=== PATIENT | male | born 1930 | race Caucasian/White ===

== ENCOUNTER 2016-11-30 12:14 | Emergency (ER) | payer MEDICARE ==
[~2016-11-30 12:14] MED LIST: AUGMENTIN 500-500 MG PO; AUGMENTIN TAB875 MG PO; ELIQUIS2.5 MG PO; FERROUS SULFAT325 M2 PO; PLAVIX 75 MG TA75 MG PO; PROTONIX40 MG PO; SOTALOL80 MG PO; VITAMIN B-121000 MC3 PO; WELLBUTRIN SR150 MG PO
[2017-03-17] MEDS ORDERED: FINASTERIDE5 MG PO (00:48)
[2017-03-17] MEDS ORDERED: XARELTO15 MG PO (00:49)
== END 2016-11-30 15:05 | disposition home or self-care (01) ==
LOC: ER1 12:14
DX: I95.2 Hypotension due to drugs (principal); I10 Essential (primary) hypertension; T46.5X5A Adverse effect of other antihypertensive drugs, initial encounter; Z79.899 Other long term (current) drug therapy
CPT/HCPCS: 99284